=== PATIENT | female | born 1985 | race Caucasian/White ===

== ENCOUNTER 2021-06-12 17:00 | Emergency (ER) | payer SELFPAY ==
[~2021-06-12] VITALS: Ht 170.2 cm; Wt 71.7 kg
--- NOTE | 2021-06-12 17:44 | NUR ---
DR TAYLOR AT BEDSIDE
[2021-06-12] MEDS ORDERED: KETOROLAC TROMETHAMINE INJ 60 MG/2 ML VIAL IM ONE (18:00)
[2021-06-12] MEDS ORDERED: KETOROLAC TROMETHAMINE INJ 30 MG/ML VIAL ONE (18:36)
--- NOTE | 2021-06-12 18:42 | NUR ---
RAPID COVID SWAB DONE AND SENT TO LAB
--- NOTE | 2021-06-12 19:21 | NUR ---
ENDORSEMENT GIVEN TO TIANNA WEAVER FOR JORDI
[2021-06-12] MEDS ORDERED: IBUP-1953 PO (19:40)
[2021-06-12] MEDS ORDERED: CYCL5TAB PO (19:41)
--- NOTE | 2021-06-12 19:50 | NUR ---
Patient discharged to home in stable condition. Written and verbal after care instructions given. Patient verbalizes understanding of instruction. PT ambulatory with a steady gait
[2021-06-12 21:42] VITALS: BP 119/69
== END 2021-06-12 19:51 | disposition home or self-care (01) ==
LOC: ER 17:07
DX: M54.2 Cervicalgia (principal); S19.9XXS Unspecified injury of neck, sequela; W18.30XS Fall on same level, unspecified, sequela; R51.9 Headache, unspecified; Z20.822 Contact with and (suspected) exposure to COVID-19; M79.7 Fibromyalgia; Z79.899 Other long term (current) drug therapy
CPT/HCPCS: 70360; 87426; 96372; 99284; C9803; J1885